=== PATIENT | male | born 1975 | race Caucasian/White ===

== ENCOUNTER 2018-10-27 18:05 | Emergency (ER) | payer OTHER ==
[~2018-10-27] VITALS: Ht 182.9 cm; Wt 87.8 kg
[2018-10-27 18:07] VITALS: BP 125/85
== END 2018-10-27 19:34 | disposition home or self-care (01) ==
LOC: ED 19:26
DX: T16.1XXA Foreign body in right ear, initial encounter (principal); R55 Syncope and collapse; W45.8XXA Other foreign body or object entering through skin, initial encounter; Y93.89 Activity, other specified; Y92.89 Other specified places as the place of occurrence of the external cause; Y99.8 Other external cause status
CPT/HCPCS: 69200; 99284